=== PATIENT | female | born 1980 | race American Indian/Alaskan Native ===

== ENCOUNTER 2020-06-17 10:51 | Outpatient (CLI) | payer MEDICAID ==
[2020-06-17] MEDS ORDERED: LACTATED RINGERS 500 ML IV ONE (11:05)
[2020-06-17] MEDS ORDERED: METOCLOPRAMIDE 10 MG TAB PO PRN (11:15)
--- NOTE | 2020-06-17 11:35 | Event Note ---
Date: 06/17/20 pt c/o CROUCH since Wednesday, she c/o light sensitivity along with head pain. b/p normal, no s/s pre-e. Suspect migraine, will treat with IVF bolus, IV benadryl and reglan. FHT appropriate for gestation. Will continue to monitor. If patient reports relief after treatment, will d/c home.
[2020-06-17 11:40] VITALS: BP 107/62
[2020-06-17] MEDS ORDERED: diphenhydrAMINE 50 MG CAP PO NR ×2 (12:00)
[2020-06-17] MEDS ORDERED: diphenhydrAMINE 50 MG/ML VIAL IV ONE (12:00)
[2020-06-17] MEDS ORDERED: METOCLOPRAMIDE 10 MG/2 ML INJ IV ONE (12:00)
== END 2020-06-17 13:37 | disposition home or self-care (01) ==
LOC: TRG 10:51 → APU 10:52 → TRG 13:37
PROVIDERS: ATTEND Obstetrics & Gynecology
DX: O26.892 Other specified pregnancy related conditions, second trimester (principal); R51 Headache; O47.02 False labor before 37 completed weeks of gestation, second trimester; O09.522 Supervision of elderly multigravida, second trimester; J45.909 Unspecified asthma, uncomplicated; Z87.891 Personal history of nicotine dependence; Z3A.27 27 weeks gestation of pregnancy
CPT/HCPCS: 59025; 96365; 96368; J1200; J2765; 96360; J7120

== ENCOUNTER 2020-08-07 12:22 | Outpatient (CLI) | payer MEDICAID ==
[2020-08-07] MEDS ORDERED: LACTATED RINGERS 1,000 ML IV SCH (13:00)
[2020-08-07 13:01] VITALS: BP 100/59
--- NOTE | 2020-08-07 13:49 | Event Note ---
Date: 08/07/20 (Pt with c/o back pain and ctxs.) Pt states that she has been having back pain and ctxs. Denied vaginal bleeding, LOF. EFM initiated and category 1 throughout triage visit. One contraction noted in a 30 minute period. Cervical exam /-3 and remained unchanged throughout triage stay. Will discharge home with strict labor precautions and keep scheduled appointment in office. Pt verbalized understanding.
[2020-08-07 14:34] LABS: Bacteria,Urine 1+ /HPF (Negative); Bilirubin,Urine NEG (Negative); Blood,Urine NEG (Negative); Color,Urine Yellow (Yellow); Mucus,Urine 2+ /HPF; Protein,Urine <15 mg/dL mg/dL (Negative); Urobilinogen,Urine < 2.0 mg/dL (<2.0)
== END 2020-08-07 16:34 | disposition home or self-care (01) ==
LOC: APU 12:22 → TRG 12:22
PROVIDERS: ATTEND Obstetrics & Gynecology
DX: O26.893 Other specified pregnancy related conditions, third trimester (principal); R10.9 Unspecified abdominal pain; Z3A.34 34 weeks gestation of pregnancy
CPT/HCPCS: 59025; 81001

== ENCOUNTER 2020-09-11 12:57 | Inpatient (IN) | payer MEDICAID ==
--- NOTE | 2020-09-11 13:32 | History and Physical Report ---
History of Present Illness Date of examination: 09/11/20 Date of admission: 09/11/20 12:57 Chief complaint: abd pain, direct admit from office in labor History of present illness: EDC Calculations by LMP: 09/12/2020 Past History : 8 Term Births: 2 Premature Births: 3 Living Children: 5 Para: 5 Mult. Births: 0 Prev : 0 Prev. attempt? 0 Aborta: 2 Elect. Ab: 1 Spont. Ab: 1 Ectopics: 0 # 1 Delivery date: 1994 Weeks Gestation: 6 Delivery type: SAB Comments: +D&C # 2 Delivery date: 1998 Weeks Gestation: 36 labor: yes Delivery type: Delivery location: [facility] Inf[facility] Sex: Female weight: 6-0 # 3 Delivery date: 2003 Weeks Gestation: 37 labor: no Delivery type: Delivery location: [facility] [place] Sex: Male weight: 6-7 # 4 Delivery date: 2007 Weeks Gestation: 34 labor: yes Delivery type: Delivery location: [facility] [place] Sex: Female weight: 6-8 # 5 Delivery date: 2008 Weeks Gestation: 32 labor: yes Delivery type: Infant Sex: Female weight: 4-12 # 6 Delivery date: 2009 Delivery type: EAB # 7 Delivery date: 2010 Weeks Gestation: 38 labor: yes Delivery type: Delivery location: [facility] Infant Sex: Female weight: 6 Comments: Pt delivered w/o knowing because she had an epidural and it was change of shift Past Medical History: Reviewed history from 04/27/2017 and no changes required: +hx of kidney stone LUpus-new dx. was not confirmed She does NOT have Lupus Past Surgical History: Reviewed history from 04/20/2011 and no changes required: D&C: Knee Arthroscopy Past Medical History Surgery (Non-physician gynecologist): D&C: Knee Arthroscopy Abnormal PAP: negative JESSICA Exposure: negative Infertility: negative Uterine Anomaly: negative Uterine Surgery (not C/S): negative Other Gynecologic Problems: negative Social Hx: Patient is single no etoh, no illicit drug use, no tobacco use Smoking History: Patient has never smoked. Infection History HIV Risk Eval: no Personal hx. of genital herpes: yes Partner hx. of genital herpes: no Rash, Viral, or Febrile illness since last LMP? no Varicella/Chicken Pox Status: Previous Disease TB Risk: no Genetic History ADVANCED MATERNAL AGE Congenital Heart Defect: Mom: no Dad: no Allyson Disease: Mom: no Dad: no Thalassemia Mom: no Dad: no Neural Tube Defect Mom: no Dad: no Down's Syndrome Mom: no Dad: no Frank-Sachs Mom: no Dad: no Sickle Cell Disease/Trait Mom: no Dad: no Hemophilia Mom: no Dad: no Muscular Dystrophy Mom: no Dad: no Cystic Fibrosis Mom: no Dad: no Sabine Chorea Mom: no Dad: no Mental Retardation Mom: no Dad: no Fragile X Mom: no Dad: no Other Genetic/Chromosomal Disorder Mom: no Dad: no Child w/other defect Mom: no Dad: no Enviromental Exposures Xray Exposure: no Medication, drug, or alcohol use since LMP: no Chemical/Other Exposure: no Exposure to Cat Liter: no Hx of Parvovirus (Fifth Disease): no Occupational Exposure to Children: none Active Medications (reviewed today): GERITOL () Current Allergies (reviewed today): DEMEROL (Critical) ULTRAM (TRAMADOL HCL TABS) (Critical) NAPROXEN (Critical) * DARVOCET (Critical) Past History Past Medical History: other (see HPI) Past Surgical History: other (see HPI) 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 (see HPI) Family/Genetic History: other (see HPI) Social history: no significant social history - Obstetrical History Expected Date of Delivery: 09/12/20 Actual Gestation: 39 Week(s) 6 Day(s) : 8 Para: 5 Hx # Term Pregnancies: 2 Number of Pregnancies: 3 Spontaneous Abortions: 1 Induced : 1 Number of Living Children: 5 Medications and Allergies Allergies Allergy/AdvReac Type Severity Reaction Status Date / Time acetaminophen Allergy Hives Verified 04/28/16 17:53 [From Darvocet-N] naproxen [From Naprosyn] Allergy Hives Verified 04/17/20 18:00 propoxyphene napsylate Allergy Hives Verified 04/17/20 18:00 [From Darvocet-N] tizanidine HCl Allergy Hives Verified 04/17/20 18:00 [From Zanaflex] tramadol HCl [From Ultram] Allergy Nausea Verified 04/17/20 18:00 Home Medications Medication Instructions Recorded Confirmed Last Taken Type HYDROcodone/APAP 5-325 [[place] 1 each PO Q6HR PRN #14 tablet 04/29/16 Unknown Rx 5/325] Review of Systems All systems: negative - Physical Exam Breasts: Positive: normal Cardiovascular: Regular rate Lungs: Positive: Normal air movement Abdomen: Positive: normal appearance, soft Genitourinary (Female): Positive: normal external genitalia, normal perenium Vulva: both: normal Vagina: Positive: normal moisture Uterus: Positive: normal size, normal contour - Obstetrical FHR: auscultation normal Uterine Contraction Monitor Mode: External Cervical Dilatation: 5 Results Result Diagrams: 09/11/20 13:52 All other labs normal. Assessment and Plan 40y/o @ 39+6 weeks sent from office in labor 5cms. Admission orders in EMR. - Patient Problems (1) 39 weeks gestation of Current Visit: Yes Status: Acute (2) Advanced maternal age (AMA), 40 years or greater Current Visit: Yes Status: Acute
[2020-09-11] MEDS ORDERED: LIDOCAINE (2%) 20 MG/1 ML VIAL 20 ML MDV INFILTRATI ONE (13:35)
[2020-09-11] MEDS ORDERED: METHYLERGONOVINE MALEATE 0.2 MG/ML VIAL IM PRN (13:35)
[2020-09-11] MEDS ORDERED: CARBOPROST TROMETHAMINE 250 MCG/1 ML INJ IM PRN (13:35)
[2020-09-11] MEDS ORDERED: TERBUTALINE 1 MG/1 ML INJ SUB-Q PRN (13:35)
[2020-09-11] MEDS ORDERED: MINERAL OIL 30 ML ORAL LIQD PO PRN (13:35)
[2020-09-11] MEDS ORDERED: fentaNYL 100 MCG/2 ML INJ IV PRN (13:35)
[2020-09-11] MEDS ORDERED: ePHEDrine SULFATE 50 MG/1 ML INJ IV PRN ×2 (13:35→15:13)
[2020-09-11] MEDS ORDERED: miSOPROStol 200 MCG TAB PR PRN (13:35)
[2020-09-11] MEDS ORDERED: ONDANSETRON 4 MG/2 ML INJ IV PRN ×2 (13:35→23:30)
[2020-09-11] MEDS ORDERED: OXYTOCIN 10 UNIT/1 ML INJ IM PRN (13:35)
[2020-09-11] MEDS ORDERED: LACTATED RINGERS 1,000 ML IV SCH (13:45)
[2020-09-11] MEDS ORDERED: OXYTOCIN DRIP 30 UNITS/500 ML BAG IV SCH ×3 (14:00→23:30)
[2020-09-11 14:17] LABS: Hematocrit 33.2 % (30.3-42.9); Mean Corpuscular HGB Conc 33 % (30-34); Mean Corpuscular Volume 90 fl (79-97); Platelet Count 148 K/mm3 (140-440); Red Blood Count 3.68 M/mm3 (3.65-5.03); Red Cell Distribution Width 14.2 % (13.2-15.2)
[2020-09-11] MEDS ORDERED: NALOXONE 2 MG/2 ML INJ IV PRN (15:13)
--- NOTE | 2020-09-11 15:13 | Anesthesia Consultation ---
Anesthesia Consult and Med Hx Date of service: 09/11/20 - Airway Anesthetic Teeth Evaluation: Good ROM Head & Neck: Adequate Mental/Hyoid Distance: Adequate Mallampati Class: Class II Intubation Access Assessment: Probably Good - Pulmonary Exam CTA: Yes - Cardiac Exam Cardiac Exam: RRR - Pre-Operative Health Status ASA Pre-Surgery Classification: ASA2 Proposed Anesthetic Plan: Epidural - Pulmonary Hx Asthma: Yes (last attack 5 yrs ago) - Cardiovascular System Hx Hypertension: No - Central Nervous System Hx Seizures: No Hx Psychiatric Problems: No - Endocrine Hx Renal Disease: No Hx Hypothyroidism: No Hx Hyperthyroidism: No - Hematic Hx Anemia: No Hx Sickle Cell Disease: No - Other Systems Hx Alcohol Use: No
--- NOTE | 2020-09-11 15:36 | Progress Note ---
Labor Epidural - Labor Epidural Start Time: 15:25 Stop Time: 15:28 Performed by:: BRIDGER MARQUEZ Procedure: Patient is requesting epidural for labor pain. H&P, and labs reviewed. Procedure explained, questions answered, consent obtained. Patient in sitting position with blood pressure cuff and pulse ox on and working. Timeout performed immediately before start of procedure. Sterile betadine prep/drape. 3 mL 1% lidocaine skin wheal at L[3]-L[4]. 18-gauge Need Fixed epidural needle advanced to [id number] with saline at [7] cm. Epidural dexmedetomidine [30] mcg administered. Epidural catheter advanced to [12] cm, negative aspiration for blood and csf, negative test dose 3 ml 1.5% lidocaine with epinephrine. Sterile steri-strips and tegaderm applied, followed by tape reinforcement. Patient tolerated procedure well. Mickey OLIVER
[2020-09-11] MEDS ORDERED: fentaNYL-BUPIV 2 MCG/ML-0.125% 200 MCG/100 ML BAG EPIDURAL SCH (16:00)
--- NOTE | 2020-09-11 19:52 | Procedure Note ---
OB Delivery Note - Delivery Date of Delivery: 09/11/20 Manufacturing Supervisor: TRUMAN MARTINI Estimated blood loss: 100cc - Vaginal Delivery presentation: vertex Delivery position: OA Intrapartum events: none Delivery induction: none Delivery augmentation: rupture of membranes, pitocin Delivery monitor: external FHT, external uterine Route of delivery: Delivery placenta: spontaneous Delivery cord: 3 umbilical vessels Episiotomy: none Delivery laceration: none Anesthesia: epidural Delivery comments: male birthed over intact perineum, placed skin to skin on mother's abdomen. 3 vessel cord clamped and cut. placenta del intact and complete. no lacerations to repair. EBL 100. Apgars 8/9, wt 6#10. all counts correct. - A at 1 minute: 8 at 5 minutes: 9 Gender: Male (6lbs 10oz.)
[2020-09-11] MEDS ORDERED: diphenhydrAMINE 25 MG CAP PO PRN (23:30)
[2020-09-11] MEDS ORDERED: WITCH HAZEL/ GLYCERIN PAD TP PRN (23:30)
[2020-09-11] MEDS ORDERED: LANOLIN/ZINC/DIMETHICONE (LANSINOH) 7 GM TP PRN (23:30)
[2020-09-11] MEDS ORDERED: BENZOCAINE/MENTHOL 20/0.5% TOP SPRAY 56 GM TP PRN (23:30)
[2020-09-11] MEDS ORDERED: PROMETHAZINE 25 MG TAB PO PRN (23:30)
[2020-09-11] MEDS ORDERED: ACETAMINOPHEN 500 MG TAB PO PRN (23:30)
[2020-09-11] MEDS ORDERED: MAGNESIUM HYDROXIDE (MOM) ORAL LIQD UDC PO PRN (23:30)
[2020-09-12] MEDS: IBUPROFEN 800 MG TAB PO SCH ×4 (00:56→23:48)
[2020-09-12] MEDS ORDERED: DIPHtheria,PERTUSSIS(ACELL),TETANUS VACCINE/PF 0.5 ML VIAL IM ONE (06:00)
--- NOTE | 2020-09-12 08:16 | Progress Note ---
Assessment and Plan Pt sitting in bed holding infant. No visible s/s of distress. VSSAF. Post- delivery H/H scheduled to be drawn this morning. Ambulating and voiding without difficulty. Fundus firm at umbilicus. Light vaginal bleeding seen. Formula- feeding with some challenges with ingesting formula. Desires circumcision. Interested in BTL for permanent sterilization. P: Continue PP pathway. Will consider D/C home at 24 hrs PP if pt remains stable. - Patient Problems (1) (normal spontaneous vaginal delivery) Current Visit: Yes Status: Acute Subjective - Subjective Date of service: 09/12/20 Principal diagnosis: Day #1 s/p Patient reports: appetite normal, voiding normally, pain well controlled, ambulating normally [place]: doing well Objective - Vital Signs Latest vital signs: Vital Signs Temp Pulse Resp BP BP Pulse Ox 09/12/20 04:18 97.8 F 52 L 20 102/64 98 09/12/20 01:00 97.8 F 64 20 102/60 97 09/11/20 22:12 79 98 09/11/20 22:09 78 97/61 09/11/20 22:07 79 99 09/11/20 22:02 86 98 09/11/20 21:57 84 99 09/11/20 21:54 71 97/60 09/11/20 21:52 75 99 09/11/20 21:47 77 100 09/11/20 21:42 83 99 09/11/20 21:39 72 100/65 09/11/20 21:37 84 98 09/11/20 21:32 77 99 09/11/20 21:27 86 99 09/11/20 21:24 74 103/68 09/11/20 21:22 73 99 09/11/20 21:17 76 99 09/11/20 21:12 74 100 09/11/20 21:09 85 103/72 09/11/20 21:07 79 100 09/11/20 21:02 84 99 09/11/20 20:57 82 99 09/11/20 20:54 72 108/61 09/11/20 20:52 76 97 09/11/20 20:47 73 98 09/11/20 20:42 77 99 09/11/20 20:39 68 106/61 09/11/20 20:37 65 100 09/11/20 20:32 64 100 09/11/20 20:27 78 99 09/11/20 20:24 72 97/64 09/11/20 20:23 74 93 09/11/20 20:22 74 99 09/11/20 20:17 79 99 09/11/20 20:12 77 99 09/11/20 20:09 73 107/68 09/11/20 20:07 73 100 09/11/20 20:02 72 100 09/11/20 19:57 77 99 09/11/20 19:54 63 102/63 09/11/20 19:52 72 99 09/11/20 19:48 71 98/64 09/11/20 19:47 98.4 F 74 18 98/64 100 09/11/20 19:42 69 100 09/11/20 19:37 70 99 09/11/20 19:32 69 100 09/11/20 19:27 100 H 100 09/11/20 19:22 68 100 09/11/20 19:17 59 L 100 09/11/20 19:12 58 L 100 09/11/20 19:07 55 L 100 09/11/20 19:02 59 L 100 09/11/20 18:57 55 L 100 09/11/20 18:55 56 L 104/57 09/11/20 18:52 60 100 09/11/20 18:47 53 L 100 09/11/20 18:45 98.1 F 09/11/20 18:42 72 100 09/11/20 18:37 54 L 100 09/11/20 18:32 63 100 09/11/20 18:27 61 100 09/11/20 18:26 56 L 96/52 93 09/11/20 18:22 69 100 09/11/20 18:17 69 100 09/11/20 18:12 51 L 100 09/11/20 18:07 64 100 09/11/20 18:02 58 L 100 09/11/20 17:57 56 L 100 09/11/20 17:52 60 100 09/11/20 17:51 61 98/59 09/11/20 17:47 59 L 97/52 100 09/11/20 17:42 64 105/63 100 09/11/20 17:37 60 105/62 100 09/11/20 17:33 58 L 99/58 09/11/20 17:32 61 100 09/11/20 17:27 58 L 105/62 100 09/11/20 17:23 60 99/60 09/11/20 17:22 62 100 09/11/20 17:18 59 L 105/59 09/11/20 17:17 59 L 100 09/11/20 17:12 57 L 98/54 100 09/11/20 17:07 59 L 103/58 100 09/11/20 17:02 59 L 101/58 98 09/11/20 17:00 98.2 F 09/11/20 16:57 62 104/56 98 09/11/20 16:52 64 101/58 99 09/11/20 16:49 73 105/56 09/11/20 16:47 63 97 09/11/20 16:42 57 L 100 09/11/20 16:37 64 88/53 100 09/11/20 16:32 57 L 100 09/11/20 16:31 54 L 83/45 09/11/20 16:27 57 L 100 09/11/20 16:26 52 L 85/46 09/11/20 16:22 53 L 95/51 100 09/11/20 16:17 55 L 100 09/11/20 16:16 54 L 87/54 09/11/20 16:12 55 L 100 09/11/20 16:11 53 L 89/50 09/11/20 16:07 67 99 09/11/20 16:06 64 98/54 09/11/20 16:02 66 100 09/11/20 16:01 68 97/61 09/11/20 15:57 74 100 09/11/20 15:56 75 100/57 09/11/20 15:52 64 98 09/11/20 15:51 70 102/59 09/11/20 15:47 61 100 09/11/20 15:46 81 110/60 09/11/20 15:42 67 100 09/11/20 15:41 75 115/67 09/11/20 15:37 63 99 09/11/20 15:32 76 100 09/11/20 15:27 70 100 09/11/20 15:22 69 100 09/11/20 15:17 80 100 09/11/20 15:12 72 100 09/11/20 15:07 73 100 09/11/20 15:02 61 100 09/11/20 15:00 98.4 F 09/11/20 14:57 68 100 09/11/20 14:52 64 100 09/11/20 14:47 65 100 09/11/20 14:42 67 100 09/11/20 14:37 72 99 09/11/20 14:32 64 100 09/11/20 14:27 70 100 09/11/20 14:22 61 100 09/11/20 13:48 62 99/53 09/11/20 13:45 98.4 F Intake and Output 09/11/20 09/12/20 09/12/20 22:59 06:59 14:59 Intake Total 240 Output Total 400 Balance -160 Intake: Oral 240 Output: Urine 400 Void 400 Other: Total, Intake Amount 120 Total, Output Amount 400 Weight 156 lb Estimated Blood Loss 100 - Exam Breasts: Present: deferred Cardiovascular: Present: Regular rate Lungs: Present: Normal air movement Abdomen: Present: normal appearance, soft Uterus: Present: normal, firm, fundal height at umbilicus Extremities: Present: normal Deep Tendon Reflex Grade: Normal +2
[2020-09-12] MEDS: DOCUSATE SODIUM 100 MG CAP PO SCH ×2 (10:00→23:49)
[2020-09-12] MEDS ORDERED: PRENATAL VIT27-FE FUMARATE-FOLIC ACID VIT TAB PO SCH (10:00)
[2020-09-12 13:47] LABS: Hematocrit 29.5 % (30.3-42.9)
--- NOTE | 2020-09-12 15:55 | Post Anesthesia Evaluation ---
- Post Anesthesia Evaluation Patient Participated: Yes Airway Patent: Yes Stable Respiratory Function: Yes Nausea/Vomiting: No Temp > 96.8F: Yes Pain Manageable: Yes Adequeate Hydration: Yes Anesthesia Complications: No Block Receding Appropriately: Yes
--- NOTE | 2020-09-12 16:47 | Discharge Summary ---
Providers - Providers Date of Admission: 09/11/20 12:57 Date of discharge: 09/12/20 Attending physician: PITO MARTINEZ 09/11/20 23:30 Consult to Fan Engine Engineer [CONS] Routine Reason For Exam: assistance with , SNS Primary care physician: KEVIN LIZ Hospitalization Reason for admission: active labor Delivery: Episiotomy: none Laceration: none Other procedures: none complications: none Discharge diagnosis: IUP at term delivered Simpson baby: male Pertinent studies: Post-delivery H/H 08/08. Hospital course: 40 y.o. female, , active labor at 39 weeks. Uncomplicated and PP course. P: Can be D/C home at 24 hrs PP if remains stable. F/U in 4 weeks for PPV. Condition at discharge: Good Disposition: DC-01 TO HOME OR SELFCARE - Discharge Diagnoses (1) (normal spontaneous vaginal delivery) Status: Acute Comment: VSSAF remains since initial assessment this morning. Desires BTL for sterilization. P: Can be to discharged at 24hrs post-delivery if patient remains stable. F/U in 4 weeks for PPV. Plan - Discharge Medications Prescriptions: Lidocain2.5%/Prilocai2.5% [Emla] 1 applic TP ONCE #1 tube - Provider Discharge Summary Activity: no sex for 6 weeks, no heavy lifting 4 weeks, no strenuous exercise Diet: routine Additional instructions: [] Smoking cessation referral if applicable(refer to patient education folder for contact #) [] Refer to [facility]'s [facility] Booklet Call your doctor immediately for: * Fever > 100.5 * Heavy vaginal bleeding ( >1 pad per hour) * Severe persistent headache * Shortness of breath * Reddened, hot, painful area to leg or breast * Drainage or odor from incision. * Keep incision clean and dry at all times and follow doctor's instructions regarding bathing/showering - Follow up plan Follow up: KEVIN LIZ MD [Primary Care Provider] - 7 Days (Congratulations! Please contact our office at [phone] to schedule your son's 1-week circumcision appointment. Bring EMLA cream to his visit for further instructions. Also call us to schedule your 4-week visit. Feel free to contact us with any questions or concerns. )
[2020-09-13] MEDS: IBUPROFEN 800 MG TAB PO SCH (05:18)
[2020-09-13 10:40] VITALS: BP 123/86
== END 2020-09-13 14:00 | disposition home or self-care (01) | DRG 775 ==
LOC: LD 12:57 → OB 23:05
PROVIDERS: ADMIT Obstetrics & Gynecology; ATTEND Obstetrics & Gynecology
PROC: 10E0XZZ Delivery of Products of Conception, External Approach (ICD-10-PCS; principal; 2020-09-11)
PROC: 3E0R3BZ Introduction of Anesthetic Agent into Spinal Canal, Percutaneous Approach (ICD-10-PCS; 2020-09-11)
PROC: 00HU33Z Insertion of Infusion Device into Spinal Canal, Percutaneous Approach (ICD-10-PCS; 2020-09-11)
PROC: 3E0234Z Introduction of Serum, Toxoid and Vaccine into Muscle, Percutaneous Approach (ICD-10-PCS; 2020-09-12)
DX: O99.52 Diseases of the respiratory system complicating childbirth (principal); J45.909 Unspecified asthma, uncomplicated; Z20.828 Contact with and (suspected) exposure to other viral communicable diseases; Z3A.39 39 weeks gestation of pregnancy; Z37.0 Single live birth
CPT/HCPCS: 36415; 85014; 85018; 85027; 86592; 86850; 86900; 86901; G0378; J2590; U0003

== ENCOUNTER 2020-09-17 21:23 | Emergency (ER) | payer MEDICAID ==
[2020-09-17 21:56] VITALS: BP 126/74
[2020-09-18 02:34] LABS: Basophils % (Auto) 0.6 % (0.0-1.8); Eosinophils # (Auto) 0.1 K/mm3 (0.0-0.4); Hematocrit 31.8 % (30.3-42.9); Hemoglobin 10.8 gm/dl (10.1-14.3); Lymphocytes # (Auto) 1.2 K/mm3 (1.2-5.4); Lymphocytes % (Auto) 22.1 % (13.4-35.0); Mean Corpuscular HGB Conc 34 % (30-34); Mean Corpuscular Volume 91 fl (79-97); Monocytes # (Auto) 0.5 K/mm3 (0.0-0.8); Monocytes % (Auto) 8.5 % (0.0-7.3); Platelet Count 229 K/mm3 (140-440); Red Blood Count 3.51 M/mm3 (3.65-5.03); Red Cell Distribution Width 14.8 % (13.2-15.2)
[2020-09-18 02:56] LABS: Alanine Aminotransferase 38 units/L (7-56); Albumin 3.3 g/dL (3.9-5); Blood Urea Nitrogen 12 mg/dL (7-17); Calcium 9.5 mg/dL (8.4-10.2); Hemolysis Index 0
[2020-09-18 03:02] LABS: BUN/Creatinine Ratio 20
[2020-09-18 03:53] LABS: Bilirubin,Urine NEG (Negative); Blood,Urine MOD (Negative); Color,Urine Yellow (Yellow); Hyaline Casts,Urine 3 /LPF; Mucus,Urine FEW /HPF; Protein,Urine <15 mg/dL mg/dL (Negative); Urobilinogen,Urine < 2.0 mg/dL (<2.0)
--- NOTE | 2020-09-18 04:36 | Emergency Department Report ---
ED General Adult HPI - General Chief complaint: Extremity Problem,Nontraumatic Stated complaint: SWELLING IN HANDS, FEET, AND LEGS Source: patient Mode of arrival: Ambulatory Limitations: No Limitations - History of Present Illness Initial comments: Patient is a A0 40-year-old -Lebanese female with no past medical history and who is 6 days presents to the ED with complaint of acute onset persistent intermittent bilateral lower extremity swelling for the last 2 days, worse in the last 12 hours. Patient states that she contacted her TABLE TENDER physician who advised her to come to the ED for evaluation. Patient denies traumatic injury, numbness and tingling or weakness of lower extremities bilaterally, dizziness, syncope, chest pain, shortness of breath, fever, chills, nausea and vomiting or low back pain. MD Complaint: Bilateral lower extremity swelling -: Sudden, days(s) (2) Location: lower extremity (Bilateral LE swelling) Radiation: non-radiation Severity scale (0 -10): 2 Quality: dull Consistency: intermittent Improves with: none, rest Worsens with: movement Associated Symptoms: denies other symptoms. denies: confusion, chest pain, cough, diaphoresis, fever/chills, headaches, loss of appetite, malaise, nausea/vomiting, rash, seizure, shortness of breath, syncope, weakness Treatments Prior to Arrival: none - Related Data Previous Rx's Medication Instructions Recorded Last Taken Type HYDROcodone/APAP 5-325 [[place] 1 each PO Q6HR PRN #14 tablet 04/29/16 Unknown Rx 5/325] Lidocain2.5%/Prilocai2.5% [Emla] 1 applic TP ONCE #1 tube 09/12/20 Unknown Rx Allergies Allergy/AdvReac Type Severity Reaction Status Date / Time acetaminophen Allergy Hives Verified 04/28/16 17:53 [From Darvocet-N] naproxen [From Naprosyn] Allergy Hives Verified 04/17/20 18:00 propoxyphene napsylate Allergy Hives Verified 04/17/20 18:00 [From Darvocet-N] tizanidine HCl Allergy Hives Verified 04/17/20 18:00 [From Zanaflex] tramadol HCl [From Ultram] Allergy Nausea Verified 04/17/20 18:00 ED Review of Systems ROS: Stated complaint: SWELLING IN HANDS, FEET, AND LEGS Other details as noted in HPI Constitutional: denies: chills, fever Eyes: denies: eye pain, eye discharge, vision change ENT: denies: ear pain, throat pain Respiratory: denies: cough, shortness of breath, wheezing Cardiovascular: denies: chest pain, palpitations Endocrine: no symptoms reported Gastrointestinal: denies: abdominal pain, nausea, diarrhea Genitourinary: denies: urgency, dysuria, discharge Musculoskeletal: other (Bilateral LE mild swelling). denies: back pain, joint swelling, arthralgia Skin: denies: rash, lesions, change in color, change in hair/nails Neurological: denies: headache, weakness, paresthesias Psychiatric: denies: anxiety, depression Hematological/Lymphatic: denies: easy bleeding, easy bruising ED Past Medical Hx - Past Medical History Hx Hypertension: No Hx Congestive Heart Failure: No Hx Diabetes: No Hx Deep Vein Thrombosis: No Hx Renal Disease: No Hx Sickle Cell Disease: No Hx Seizures: No Hx Asthma: No Hx COPD: No Hx HIV: No - Surgical History Additional Surgical History: D&C 1994/ - Social History Smoking Status: Never Smoker Substance Use Type: None - Medications Home Medications: Home Medications Medication Instructions Recorded Confirmed Last Taken Type HYDROcodone/APAP 5-325 [[place] 1 each PO Q6HR PRN #14 tablet 04/29/16 09/12/20 Unknown Rx 5/325] Lidocain2.5%/Prilocai2.5% [Emla] 1 applic TP ONCE #1 tube 09/12/20 Unknown Rx ED Physical Exam - General Limitations: No Limitations General appearance: alert, in no apparent distress - Head Head exam: Present: atraumatic, normocephalic, normal inspection - Eye Eye exam: Present: normal appearance, PERRL, EOMI Pupils: Present: normal accommodation - ENT ENT exam: Present: normal exam, normal orophraynx, mucous membranes moist, TM's normal bilaterally, normal external ear exam - Neck Neck exam: Present: normal inspection, full ROM - Respiratory Respiratory exam: Present: normal lung sounds bilaterally. Absent: respiratory distress, wheezes, rales, rhonchi, chest wall tenderness, accessory muscle use, decreased breath sounds - Cardiovascular Cardiovascular Exam: Present: regular rate, normal rhythm, normal heart sounds. Absent: systolic murmur, diastolic murmur, rubs, gallop - GI/Abdominal GI/Abdominal exam: Present: soft, normal bowel sounds. Absent: tenderness, guarding, rebound, hyperactive bowel sounds, hypoactive bowel sounds - Extremities Exam Extremities exam: Present: normal inspection, full ROM, normal capillary refill, other (Mild bilateral LE swelling, no pitting edema). Absent: tenderness - Back Exam Back exam: Present: normal inspection, full ROM. Absent: tenderness, CVA tenderness (R), CVA tenderness (L), muscle spasm, paraspinal tenderness, vertebral tenderness - Neurological Exam Neurological exam: Present: alert, oriented X3, CN II-XII intact, normal gait, reflexes normal - Psychiatric Psychiatric exam: Present: normal affect, normal mood - Skin Skin exam: Present: warm, dry, intact, normal color. Absent: rash ED Course Vital Signs 09/17/20 21:53 Temperature 98.8 F Pulse Rate 66 Respiratory 18 Rate Blood Pressure 126/74 O2 Sat by Pulse 97 Oximetry ED Medical Decision Making - Lab Data Result diagrams: 09/18/20 02:03 09/18/20 02:03 - Medical Decision Making This is a A0 40-year-old -L[place]anese female with no past medical history and who is 6 days presents to the ED with complaint of acute onset persistent intermittent bilateral lower extremity swelling for the last 2 days, worse in the last 12 hours. Patient states that she contacted her TABLE TENDER physician who advised her to come to the ED for evaluation. In the ED, patient is alert and oriented x3 and is not in distress. Patient's vital signs are stable. Lab test results were reviewed and are all nonactionable including urinalysis. Patient was discharged home and advised to limit salt intake, and elevate her legs above her heart when at home and resting. Patient was also advised to follow-up with her TABLE TENDER physician in 3 to 5 days for reevaluation or return to the ED immediately if symptoms get worse. - Differential Diagnosis Fluid overload; CHF; Anasarca; DVT Critical care attestation.: If time is entered above; I have spent that time in minutes in the direct care of this critically ill patient, excluding procedure time. ED Disposition Clinical Impression: Swelling of lower leg Disposition: DC-01 TO HOME OR SELFCARE Is pt being admited?: No Does the pt Need Aspirin: No Condition: Stable Instructions: Dailey Splints, [id number] Additional Instructions: All lab test results were reviewed and are all nonactionable. Therefore take medication for pain as needed and follow-up with your TABLE TENDER physician in 5 to 7 days for reevaluation. Your lower extremity swelling is due to dependent edema related to your recent . Elevate your legs above your heart each time you lay down. Return to the ED immediately if symptoms get worse. Referrals: NEENA PEREZ MD [Staff Physician] - 3-5 Days Time of Disposition: 04:48 Print Language: SLOVAK
== END 2020-09-18 05:10 | disposition home or self-care (01) ==
LOC: ED 21:23
DX: O90.89 Other complications of the puerperium, not elsewhere classified (principal); R22.43 Localized swelling, mass and lump, lower limb, bilateral; Z88.6 Allergy status to analgesic agent; Z88.8 Allergy status to other drugs, medicaments and biological substances; Z79.899 Other long term (current) drug therapy
CPT/HCPCS: 36415; 80053; 81001; 85025; 99283